=== PATIENT | female | born 1970 | race Two or more races ===

== ENCOUNTER 2021-01-12 01:27 | Emergency (ER) | payer SELFPAY ==
[~2021-01-12] VITALS: Ht 162.6 cm; Wt 95.0 kg
[2021-01-12] MEDS ORDERED: ONDANSETRON 2MG/ML, 2ML ONE (01:47)
[2021-01-12] MEDS ORDERED: MORPHINE SULFATE 4 MG/ML, 1ML ONE (01:47)
--- NOTE | 2021-01-12 01:55 | NUR ---
PT STATES WOKEN UP WITH SHARP BILATERAL LOWER ABD PAIN AROUND 2300. PT IN SOME DISTRESS IN TRIAGE. PT TEARFUL. PIV PLACED AND LABS DRAWN. PT MEDICATED FOR PAIN AND NAUSEA. PT TO CT.
[2021-01-12 01:57] LABS: BASOPHILS % (AUTO) 1 % (0-1); EOSINOPHILS % (AUTO) 0 % (1-7); LYMPHOCYTES % (AUTO) 16 % (22-44); MEAN CORPUSCULAR HEMOGLOBIN 30.6 pg (27.0-34.8); MEAN CORPUSCULAR HGB CONC 34.5 g/dL (32.4-35.8); MEAN PLATELET VOLUME 9.7 fL (7.4-10.4); MONOCYTES % (AUTO) 4 % (2-9); NEUTROPHILS % (AUTO) 79 % (42-75); PLATELET COUNT 218 x10^3/uL (130-400); RED BLOOD COUNT 4.87 x10^6/uL (3.82-5.3); RED CELL DISTRIBUTION WIDTH 13.9 % (9.6-15.2)
[2021-01-12 01:58] LABS: MD NO
[2021-01-12] MEDS ORDERED: ONDANSETRON 2MG/ML, 2ML IVPush ONE (02:00)
[2021-01-12] MEDS ORDERED: MORPHINE SULFATE 4 MG/ML, 1ML IVPush ONE (02:00)
[2021-01-12 02:05] LABS: ALBUMIN 3.9 g/dL (3.4-5.0); ANION GAP 8 mmol/L (5-15); CALCIUM 8.6 mg/dL (8.5-10.1); CHLORIDE 109 mmol/L (98-107)
[2021-01-12 02:06] LABS: CREATININE 0.79 mg/dL (0.55-1.02)
[2021-01-12] MEDS ORDERED: KETOROLAC 30 MG/1 ML ONE (02:19)
--- NOTE | 2021-01-12 02:26 | NUR ---
PT REMEDICATED FOR PAIN. DAUGHTER AT BEDSIDE. CALL LIGHT IN REACH
[2021-01-12] MEDS ORDERED: KETOROLAC 30 MG/1 ML IVPush ONE (02:30)
--- NOTE | 2021-01-12 03:01 | NUR ---
UA SENT TO LAB. PAIN IMPROVED WITH TORADOL. PT HAS NO OTHER NEEDS. CALL LIGHT IN REACH
[2021-01-12 03:07] LABS: MICROSCOPIC AUTO
--- NOTE | 2021-01-12 03:23 | NUR ---
PT TO US.
--- NOTE | 2021-01-12 04:07 | NUR ---
PT SLEEPING AND PAIN APPEARS CONTROLLED. VSS. CALL LIGHT IN REACH
--- NOTE | 2021-01-12 04:52 | NUR ---
PT RESTING. MD AT BEDSIDE. CALL LIGHT IN REACH
[2021-01-12 05:23] VITALS: BP 119/71
--- NOTE | 2021-01-12 05:23 | NUR ---
Patient given discharge instructions and they have confirmed that they understand the instructions. Patient ambulatory with steady gait.
== END 2021-01-12 05:25 | disposition home or self-care (01) ==
LOC: ED 02:50
DX: N13.2 Hydronephrosis with renal and ureteral calculous obstruction (principal); N83.292 Other ovarian cyst, left side; N23 Unspecified renal colic; R11.2 Nausea with vomiting, unspecified
CPT/HCPCS: 36415; 74176; 76830; 80048; 81001; 82040; 85025; 96374; 96375; 99285; J1885; J2270; J2405